=== PATIENT | male | born 1955 | race Caucasian/White ===

== ENCOUNTER → 2024-10-07 | Outpatient (CLI) | payer OTHER ==
[2024-10-07 12:45] LABS: CREATININE 0.8 mg/dL (0.5-1.3); POTASSIUM 4.5 mmol/L (3.5-5.1)
== END | disposition home or self-care (01) ==
LOC: LAB 08:41
PROVIDERS: ATTEND Internal Medicine
DX: I25.10 Atherosclerotic heart disease of native coronary artery without angina pectoris (principal)
CPT/HCPCS: 36415; 80048

== ENCOUNTER → 2024-10-10 | Outpatient (CLI) | payer MEDICARE, OTHER ==
[~2024-10-10] MED LIST: IOHEXOL 350 MG/ML 100ML INFUS..BTL IV ONE; IOHEXOL-350 50ML VIAL IV ONE; metoPROLOL tartRATE 1 MG/ML 5ML VIAL IV ONE
--- NOTE | 2024-10-10 10:11 | HMCIMG ---
CT OF THE CHEST WITH CONTRAST- CT Cardiac Angio co-interpretation This is done as part of the CT cardiac angiogram study. The interpretation of the coronary arteries will be done by dtp operator in a separate report. History: over-read Comparison: none CT Dose Index (CTDI): 77.90 mGy Dose Length Product (DLP): 493.40 total mGy PROTOCOL: Examination is done at 2.5 millimeter volumetric acquisition after contrast administration with Isovue 370, 100 cc IV, without complications. Photography is done at 5 millimeter thick intervals for the thorax. The examination begins above the heart and therefore the lung apices are incompletely included. The rest of the left lung is included but the right lung is only included up to its middle third. The periphery of the right lung is not included in the study. FINDINGS: The visualized part of the airway is preserved. The bony and soft tissue structures of the chest wall are unremarkable. The aorta is unremarkable. No mediastinal lymphadenopathy is seen. The lung windows demonstrate no worrisome pulmonary nodules, masses or infiltrates. There is no evidence of pulmonary embolism in the visualized lung segments. The upper abdominal views are unremarkable. Impression: No significant abnormalities identified.
--- NOTE | 2024-10-16 14:28 | CARDIOLOGY ---
RAD REPORT: CORNARY CT ANGIO RADIOLOGY REPORT: CORONARY CT ANGIOGRAPHY DATE: Oct 16, 2024 QUALITY: Excellent CLINICAL HISTORY AND INDICATION: [CAD ] TECHNIQUE: After obtaining a preliminary stocking inspector image, contrast imaging performed on an Aquillon [id number] scanner. A dedicated, limited window, coronary imaging protocol was used, with single breath-hold, retrospective ECG gating, and automated arrhythmia rejection. 100 cc of low osmolar contrast agent: Omnipaque 350 was delivered via a 18-gauge IV catheter in the right antecubital fossa, using a power injector and followed by 60 cc of normal saline bolus as a chaser. Collimated images were reformatted at 0.5 mm intervals, and sent to an offline independent workstation for interpretation, using 3D anatomic reconstructions: Curved multiplanar reconstructions, maximum intensity projections, and multiplanar imaging. 5 mg IV metoprolol was administered prior to scanning. 0.8 mg SL nitroglycerin was given. CORONARY ARTERY DESCRIPTIONS: The coronary arteries arise in normal position. Left main coronary artery: Normal caliber vessel that bifurcates into the LAD and LCx. No stenosis. Left anterior descending coronary artery: Normal caliber vessel and gives rise to diagonal and septal branches. There is mixed calcified and noncalcified plaque in the proximal LAD with 70% stenosis. Left circumflex coronary artery: Normal caliber, nondominant and gives rise to a large OM branch. There is mixed calcified and noncalcified plaque in the proximal OM1 with 20-30% stenosis. Right coronary artery: Large, dominant vessel giving rise to the PL and PDA branches. There is a drug eluting stent in the proximal to mid RCA. CAD-RADs: 4A severe stenosis. Thoracic Aorta: Normal diameter. Vani Snyder MD Cardiovascular Disease [facility] VANI SNYDER MD Oct 16, 2024 14:28
== END | disposition home or self-care (01) ==
LOC: RAH 08:18
PROVIDERS: ATTEND Internal Medicine
DX: I25.10 Atherosclerotic heart disease of native coronary artery without angina pectoris (principal)
CPT/HCPCS: 75574; J3490; Q9967 ×2

== ENCOUNTER 2024-11-11 05:46 | Inpatient (IN) | payer OTHER ==
--- NOTE | 2024-11-07 09:58 | EKG ---
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
[2024-11-07 10:00] VITALS: BP 133/68; PULSE 64; RESP 14; TEMP 97.1
[2024-11-07 10:18] LABS: BASOPHILS # (AUTO) 0.04 K/uL (0.00-0.20); BASOPHILS % (AUTO) 0.5 % (0.0-5.0); EOSINOPHILS # (AUTO) 0.23 K/uL (0.00-0.70); EOSINOPHILS % (AUTO) 2.9 % (0.0-8.0); HEMATOCRIT 31.6 % (42-54); IMMATURE GRANULOCYTE ABSOLUTE 0.03 K/uL (0-1); MEAN CORPUSCULAR HGB CONC 29.1 g/dL (32.0-36.0); MEAN CORPUSCULAR VOLUME 82.5 fL (79-99); MONOCYTES # (AUTO) 0.7 K/uL (0.1-1.0); MONOCYTES % (AUTO) 8.7 % (3.0-13.0); NEUTROPHILS % (AUTO) 62.5 % (40.0-77.0); PLATELET COUNT (AUTO) 336 K/uL (130-400); RED BLOOD CELL COUNT(AUTO) 3.83 MIL/uL (4.50-6.20); RED CELL DISTRIBUTION WIDTH 15.3 % (11.0-15.5)
[2024-11-07 10:28] LABS: INR 1.11 (0.85-1.15); PROTHROMBIN TIME 12.3 SEC (9.6-11.6)
[2024-11-07 10:30] LABS: CREATININE 0.7 mg/dL (0.5-1.3); PARTIAL THROMBOPLASTIN TIME 21.6 SEC (26.3-35.5); POTASSIUM 4.4 mmol/L (3.5-5.1)
[2024-11-07 10:46] LABS: B-TYPE NATRIURETIC PEPTIDE 51 pg/mL (0-100)
--- NOTE | 2024-11-07 11:42 | HMCIMG ---
CHEST 1VW HISTORY: Preop COMPARISON: None FINDINGS: A frontal projection of the chest was obtained. No acute pulmonary infiltrates is seen. The heart is borderline enlarged. Prominent interstitial markings are seen. No evidence of aortic calcification is seen. IMPRESSION: 1. No acute pulmonary infiltrate is seen.
--- NOTE | 2024-11-08 12:47 | NUR ---
RE: LABS REPORTED HGB 9.2/HCT 31.[address] VANG, NO NEW ORDERS RECEIVED.
[2024-11-11] VITALS (21 sets, daily range): BP systolic 105–151; BP diastolic 55–76; PULSE 66–87; RESP 13–18; TEMP 97.6–98.6; O2SAT 92
[~2024-11-11] VITALS: Ht 170.2 cm; Wt 92.1 kg
[~2024-11-11 05:46] MED LIST changes: +ASPI-1443 PO; +ATOR-2 PO; +BISO5TAB19 PO; -IOHEXOL 350 MG/ML 100ML INFUS..BTL IV ONE; -IOHEXOL-350 50ML VIAL IV ONE; +PRAS10TA9 PO; +RAMI2.5C57 PO; -metoPROLOL tartRATE 1 MG/ML 5ML VIAL IV ONE
[2024-11-11] MEDS: 0.9%NACL 1000ML 1,000 ML IV SCH ×2 (06:33→10:00)
[2024-11-11] MEDS ORDERED: IOHEXOL 350 MG/ML 100ML INFUS..BTL IV ONE ×6 (07:18→12:38)
[2024-11-11] MEDS ORDERED: HEParin-NS 1,000 UNIT/500 ML 1,000 ML IV ONE ×2 (07:18→10:20)
[2024-11-11] MEDS ORDERED: LIDOCAINE HCL 400MG/20ML VIAL ONE ×2 (07:18→10:20)
[2024-11-11] MEDS ORDERED: HEParin 10,000 UNIT/10ML (1,000 UNIT/ML) VIAL ONE ×2 (07:18→10:26)
[2024-11-11] MEDS ORDERED: NITROGLYCERIN 50MG VIAL ONE ×2 (07:19→10:21)
[2024-11-11] MEDS ORDERED: FENTanyl CITRate PF 50 MCG/1 ML 2ML VIAL ONE ×4 (07:34→11:45)
[2024-11-11] MEDS ORDERED: MIDAZOLAM HCL 1 MG/ML 2ML VIAL ONE ×4 (07:34→11:45)
[2024-11-11] MEDS ORDERED: niCARDIpine 25MG INJ IV ONE (07:36)
[2024-11-11] MEDS ORDERED: VERAPAMIL HCL 2.5 MG/ML VIAL ONE (07:42)
[2024-11-11] MEDS ORDERED: IOHEXOL-350 50ML VIAL IV ONE (09:31)
[2024-11-11] MEDS ORDERED: hydrALAZine 20MG/ML VIAL ONE (09:40)
--- NOTE | 2024-11-11 10:10 | PRN ---
Cath Procedure Report CATH PROCEDURE REPORT CARDIAC CATHETERIZATION REPORT Date of Service: Nov 11, 2024 PROCEDURE: Left heart catheterization with selective right and left coronary angiography Intravascular ultrasound of the left anterior descending artery and left main Shockwave lithotripsy to the ostial to proximal left anterior descending arteries PTCA with placement of drug-eluting stent to the mid left anterior descending with a 3.0 x 15 mm tri [place] drug-eluting stent PTCA with placement of drug-eluting stent to the ostial to proximal left anterior descending with a 3.0 x 18 mm tri [place] drug-eluting stent in overlapping fashion Conscious sedation ORDER ENTRY SPECIALIST: Dannielle Miller DO INDICATION: Typical angina, known stenosis of left anterior descending artery, abnormal CCTA DESCRIPTION OF PROCEDURE: After informed consent was obtained, patient brought back to the foundry laborer coreroom suite in fasting state. Lidocaine was used at the subcutaneous tissues of the right wrist. The right radial artery was accessed on 1st attempt placement of six Bulgarian short sheath followed by vasodilator cocktail of 2.5 mg of verapamil and 200 mcg of nitroglycerin. Over an 035 J-wire, a five Bulgarian JR4 catheter was advanced into the ascending aorta however we could not selectively engage the right coronary artery therefore it was exchanged for an AR1 catheter which was also unsuccessful. As we confirmed patency via nonselective imaging, we then proceeded with imaging of the left coronary system. Over an six Bulgarian XB three five catheter, the left coronary artery was selectively engaged. Run-through wire was advanced down to the distal LAD. Predilatation was performed at the ostial to proximal LAD with a 3.0 x 12 mm balloon, however unable to advanced in the mid LAD stenosis. Therefore, we performed shockwave lithotripsy with a 3.0 mm balloon to the ostial to proximal LAD, followed by balloon angioplasty to the mid LAD with a 2.0 x 12 mm Euphora balloon, followed by a fresh 3.0 x 12 mm Euphora balloon. Following this, we were able to advanced the 3.0 x 15 mm tri [place] drug-eluting stent to the mid left anterior descending stenosis, followed by placement of an tri [place] 3.0 x 18 mm drug-eluting stent to the ostial to proximal left anterior descending artery in overlapping fashion with the prior placed stent. Post deployment revealed patency, adequate coverage of lesion, no dissections or residual stenosis. At this point, we exchanged over the 035 wire for the five Bulgarian JR4 catheter and performed a nonselective imaging of the right coronary artery. All catheters and wires were then removed and hemostasis achieved at the right greater arteries the vasband. FINDINGS: Left main: Short left main, bifurcating into left anterior descending left circumflex Left anterior descending: Ostial to proximal 70% eccentric calcified stenosis measuring 2.4 mm by IVUS pre stenting. In the mid LAD at the takeoff of the septal mobile development manager and large diagonal there was a 70% calcified eccentric stenosis as well. The distal LAD is diffusely disease, tortuous of 20-30% stenosis followed by an apical 70% stenosis. The 1st diagonal is a large caliber with mid 40-50% stenosis. Left circumflex: Proximal 10-20% stenosis. Large caliber OM1, OM2 branch. OM1 with ostial 30% stenosis. It bifurcates distally into a very small superior branch which displaced 70% stenosis. The OM2 also bifurcates distally with a very small inferior branch with 70% stenosis. Right coronary artery: Right dominant coronary system. The RCA is non selectively injected. The prior placed stent in the proximal to mid RCA with 50% ISR in the midportion, focal. The RPDA displaced luminal irregularities. Contrast: 300 mL Opening aortic pressure 1844/94 with a mean of 131 mm Hg Left ventricular pressure 175 mm Hg LVEDP 34 mm Hg. SUMMARY: Ostial to proximal followed by mid LAD stenosis of 70%, eccentric, calcified status post intravascular ultrasound-guided PTCA using shockwave lithotripsy and drug-eluting stent placement. DANNIELLE MILLER DO Nov 11, 2024 10:10
[2024-11-11] MEDS ORDERED: NITROGLYCERIN 0.4 MG SL TAB SL ONE (10:12)
[2024-11-11] MEDS ORDERED: NITROGLYCERIN 4.9GM SPRAY 60 SPRAY/BOT SPRY TL ONE (10:14)
[2024-11-11] MEDS ORDERED: NITROGLYCERIN 50MG/D5W 250ML 1 BOT ONE (10:14)
[2024-11-11] MEDS ORDERED: EPTIFIBATIDE 2 MG/ML 10 ML VIAL IVP ONE (10:55)
[2024-11-11] MEDS ORDERED: EPTIFIBATIDE 75MG/100ML BOTTLE 100 ML IV ONE (11:05)
--- NOTE | 2024-11-11 11:06 | EKG ---
[facility] Test Date: 2024-11-11 Test Time: 10:14:46 Pat Name: KELSIE HOUSTON Department: [facility] Room: 226 Gender: M Gta: maurice Lindo RN : 1955 Requested By: DANNIELLE VANG Order Number: [id number] Reading MD: Deny Tidwell Measurements Intervals [place] Rate: 75 P: 29 NE: 134 QRS: 75 QRSD: 106 T: 77 QT: 409 QTc: 457 Interpretive Statements Sinus rhythm Inferior infarct, acute (RCA) ST elevation, consider anterolateral injury Compared to ECG 11/07/2024 10:48:57 Myocardial infarct finding now present ST (T wave) deviation now present Electronically Signed On 11-13-2024 19:58:09 CURTAIN HEMMER AUTOMATIC by Deny Tidwell Please click the below link to view image of tracing.
[2024-11-11] MEDS ORDERED: HEParin-NS 1,000 UNIT/500 ML 500 ML IV ONE (11:20)
[2024-11-11] MEDS ORDERED: HEParin 25,000 UNITS/250ML D5W 250 ML IV ONE (12:22)
[2024-11-11] MEDS ORDERED: ondanSETRON 4MG INJ ONE (12:54)
--- NOTE | 2024-11-11 12:56 | PRN ---
Cath Procedure Report CATH PROCEDURE REPORT CARDIAC CATHETERIZATION REPORT Date of Service: Nov 11, 2024 PROCEDURES PERFORMED: LEFT HEART CATHETERIZATION WITH SELECTIVE RIGHT AND LEFT CORONARY ANGIOGRAPHY PTCA WITH BALLOON ANGIOPLASTY TO THE DISTAL TO APICAL LEFT ANTERIOR DESCENDING ARTERY USING A SPRINTER 2.5 X 12 MM COMPLIANT BALLOON DIRECT CURRENT CARDIOVERSION FROM VENTRICULAR FIBRILLATION WITH 360 JOULES TO SINUS RHYTHM. CAT RX ASPIRATION THROMBECTOMY OF DISTAL TO APICAL LEFT ANTERIOR DESCENDING THROMBOTIC OCCLUSION INTRACORONARY TPA INFUSION CONSCIOUS SEDATION ULTRASOUND GUIDED RIGHT COMMON FEMORAL ARTERY ACCESS INDICATION: Inferior ST elevation PA MIXING TANK OPERATOR: Dannielle Miller DESCRIPTION OF PROCEDURE: Post ostial to proximal and mid left anterior descending PCI, patient began experiencing chest pain with radiation to left arm. EKG performed showing inferior ST elevations. Patient prepped for emergent repeat left heart catheterization and coronary angiography. Using ultrasound guidance, the right common femoral artery was accessed on 1st attempt with the use of micropuncture and upsized to a six Kosovan short sheath. Over an 035 J-wire, a JL four guide catheter was advanced and used to selectively engage the right coronary artery multiple angiographic views were taken. This revealed patency. Then, we proceeded with placement of six Kosovan JL 4.0 guide catheter which was used to selectively engage the left coronary artery. This revealed patency of the proximal vessels and patency of the prior placed stent in the LAD, however the apical LAD with 100% thrombotic occlusion. We advanced an 014 x 300 run-through wire distally and performed dilation of this lesion with a 2.5 x 12 mm sprinter compliant balloon which result in immediately and ventricular fibrillation with patient cardioverted with 360 joules. Integrilin double bolus and drip was initiated. Due to poor guide support, we utilized a six Kosovan GuideLiner, however had difficulty in advancing a Pronto aspiration catheter through the guide liner. Nicardipine infusion was given intracoronary. We do not have adequate guide support to advance the Pronto aspiration catheter without the guide liner, however. We then exchanged the run-through wire using a microcatheter for in 014 300 cm wiggle wire, and attempted to perform aspiration thrombectomy with a cataract system. We were unable to advance this through the six Kosovan guide liner, and unable to advance it distally without the six Kosovan guide liner. Intracoronary tPA was administered which did not resolve the thrombus. At this point, the decision was made to upsized the system to a seven Kosovan system. The sheath was exchanged for a short seven Kosovan sheath, upsized to a seven Kosovan XB 4.0 guide catheter, and the run-through wire was advanced distally. The seven Kosovan GuideLiner was advanced to the proximal left anterior descending artery. We then exchanged the wire for the wiggle wire using the microcatheter. We performed aspiration thrombectomy using the Cat Rx system which resulted in extirpated clot. Multiple attempts were made at advancing a stent to the distal left anterior descending artery due to residual thrombosis, however unsuccessful. At this point, due to duration of the p rocedure, amount of contrast used, radiation exposure, decision was made to continue medical therapy for the patient's distal left anterior descending artery residual thrombosis. FINDINGS: Please see prior angiogram report for full diagnostic details. On this angiography, we were able to selectively engage the right coronary artery which revealed 40-50% mid ISR of the prior placed stents and a mildly diffuse RPDA The distal to apical LAD and 100% thrombotic occlusion, in the region of the 50% known stenosis. Fluroscopy time (total): 67.8 minutes Contrast delivered to patient (total): 490 ml mGy (total) 6135 SUMMARY: Distal to duplicate left anterior descending 100% thrombotic occlusion status post balloon angioplasty, intracoronary nicardipine, intracoronary tPA, and CAT RX thrombectomy. There was residual 70% stenosis with thrombosis, however unable to pass the stent therefore patient will be treated medically using heparin infusion, Integrilin infusion, nitroglycerin drip. DANNIELLE MILLER DO Nov 11, 2024 12:56
[2024-11-11] MEDS ORDERED: DEXTROSE 50%-WATER 50 ML DISP.SYRIN IV PRN (13:00)
[2024-11-11] MEDS ORDERED: GLUCAGON 1MG KIT 1 MG ML IM PRN (13:00)
[2024-11-11] MEDS ORDERED: NITROGLYCERIN 50MG/D5W 250ML 250 BOT IV SCH (13:00)
[2024-11-11] MEDS ORDERED: hydrALAZine 20MG/ML VIAL IV PRN (13:00)
[2024-11-11] MEDS: HEParin 25,000 UNITS/250ML D5W 250 ML IV SCH (13:30)
[2024-11-11 14:24] LABS: BASOPHILS # (AUTO) 0.03 K/uL (0.00-0.20); BASOPHILS % (AUTO) 0.2 % (0.0-5.0); EOSINOPHILS # (AUTO) 0.02 K/uL (0.00-0.70); EOSINOPHILS % (AUTO) 0.2 % (0.0-8.0); HEMATOCRIT 25.7 % (42-54); IMMATURE GRANULOCYTE ABSOLUTE 0.08 K/uL (0-1); LYMPHOCYTES # (AUTO) 1.1 K/uL (1.0-4.8); LYMPHOCYTES % (AUTO) 8.6 % (21.0-51.0); MEAN CORPUSCULAR HEMOGLOBIN 24.3 pg (27.0-33.0); MEAN CORPUSCULAR VOLUME 81.1 fL (79-99); MONOCYTES # (AUTO) 0.8 K/uL (0.1-1.0); MONOCYTES % (AUTO) 6.1 % (3.0-13.0); NEUTROPHILS # (AUTO) 10.7 K/uL (1.8-7.7); NEUTROPHILS % (AUTO) 84.3 % (40.0-77.0); PLATELET COUNT (AUTO) 291 K/uL (130-400); RED BLOOD CELL COUNT(AUTO) 3.17 MIL/uL (4.50-6.20); RED CELL DISTRIBUTION WIDTH 15.9 % (11.0-15.5); WHITE BLOOD COUNT (AUTO) 12.7 K/uL (4.8-10.8)
--- NOTE | 2024-11-11 15:37 | HP ---
HISTORY AND PHYSICAL NOTE DATE OF CONSULTATION: 11/11/24 HISTORY OF PRESENT ILLNESS: Patient is a pleasant 69-year-old male with past medical history of coronary artery disease, history of ventricular fibrillation cardiac arrest secondary to 100% thrombotic occlusion of the right coronary artery, status post emergent left heart catheterization with mid RCA drug-eluting stent placement in July of 2024 while he was vacationing in [place]. He also has a history of hypertension. Patient was noted to have residual disease of the left anterior descending artery and diffuse apical LAD stenosis with moderate OM1 disease. Transthoracic echocardiogram at that time showed a normal left ventricular ejection fraction of 60-65% and mild hypokinesis of the basal inferior region. Was discharged on dual antiplatelet therapy with aspirin prasugrel of which he has been strictly compliant. Patient underwent coronary CT angiography to further evaluate his mid LAD stenosis this was suggestive of 70% stenosis of the proximal LAD with overall CAD rads of for a period he denied chest pain, however with exertional intolerance and episodes of lightheadedness. Patient presented on one 02/09/2025 for left heart catheterization, coronary angiography with possible percutaneous intervention of the left anterior descending. Patient underwent stenting of the ostial to proximal LAD in overlapping fashion with a 2nd stent in the mid LAD using intravascular ultrasound guidance and shockwave lithotripsy. Postprocedure, he developed acute onset of chest pain with radiation to the left upper extremity with EKG showing inferior ST elevations. Patient was immediately brought back to the concrete mixing plant laborer for repeat coronary angiography which revealed apical left anterior descending artery 100% thrombosis, now status post balloon angioplasty and aspiration thrombectomy, and single cardioversion from ventricular fibrillation with 360 joules to sinus rhythm. Patient admitted to the ICU overnight on heparin, Integrilin, and nitroglycerin infusions. ALLERGIES: Coded Allergies: No Known Drug Allergies (Unverified Allergy, Unknown, 05/18/15) SOCIAL HISTORY: , independent with ADLs, nonsmoker FAMILY HISTORY Denies family history of coronary artery disease. HOME MEDS: Reported Medications Prasugrel HCl (Prasugrel HCl) 10 Mg Tablet, 10 MG PO DAILY, TAB 11/07/24 Bisoprolol Fumarate (Bisoprolol Fumarate) 5 Mg Tablet, 5 MG PO BID, TAB 11/07/24 Ramipril (Ramipril) 2.5 Mg Capsule, 2.5 MG PO BID, CAP 11/07/24 Atorvastatin Calcium (Atorvastatin Calcium) 80 Mg Tablet, 80 MG PO DAILY, TAB 11/07/24 Aspirin (Aspirin EC) 81 Mg Tablet.dr, 81 MG PO DAILY, TAB 11/07/24 INPATIENT MEDS: Current Medications Medications Dose Ordered Sig/Tessy Start Time Stop Time Status Last Admin Sodium Chloride 1,000 ml @ 0 mls/hr Q0M 11/11/24 06:30 12/11/24 06:29 11/11/24 06:33 Acetaminophen/ Codeine Phosphate 1 tab Q4H PRN 11/11/24 13:00 12/11/24 12:59 Prasugrel 10 mg DAILY 11/12/24 09:00 12/12/24 08:59 Dextrose 50 ml AD PRN 11/11/24 13:00 12/11/24 12:59 Glucagon 1 mg AD PRN 11/11/24 13:00 12/11/24 12:59 Aspirin 81 mg DAILY 11/12/24 09:00 12/12/24 08:59 Atorvastatin Calcium 40 mg HS 11/11/24 21:00 12/11/24 20:59 Eptifibatide 100 ml @ 0 mls/hr PROTOCOL 11/11/24 13:00 12/11/24 12:59 Heparin Sodium/ Dextrose 250 ml @ 0 mls/hr Q6H 11/11/24 13:30 12/11/24 13:29 Nitroglycerin/ Dextrose 250 ml @ 0 mls/hr PROTOCOL 11/11/24 13:00 12/11/24 12:59 Hydralazine HCl 10 mg Q4H PRN 11/11/24 13:00 12/11/24 12:59 Lidocaine 1 each DAILY 11/11/24 15:30 12/11/24 15:29 Fentanyl Citrate 50 mcg Q1HR PRN 11/11/24 15:30 11/12/24 15:29 VITAL SIGNS Vital Signs Date Time Temp Pulse Resp B/P (MAP) Pulse Ox O2 Delivery O2 Flow Rate FiO2 11/11/24 06:00 98.1 66 18 134/76 97 Room Air REVIEW OF SYSTEMS Patient examined postprocedure. The denies chest pain. His only complaint is of upper back pain. There was one episode of nausea with emesis treated with Zofran 4 mg x 1. PHYSICAL EXAM General: Alert and oriented x4 despite immediately postprocedure having received conscious sedation with Versed and fentanyl Cor: Regular rate and rhythm Respirations: Nonlabored, no crackles or wheeze, on O2 via nasal cannula Abdomen: Soft Extremities: No edema of the extremities x4. Vascular: Right radial artery vascular band in place postprocedure. Right common femoral artery sheath left in place. Normal capillary refill of the distal extremities. Neuro: A&O x4, nonfocal. LABORATORY RESULTS Laboratory Tests 11/11/24 14:10: White Blood Count 12.7, Red Blood Count 3.17, Hemoglobin 7.7, Hematocrit 25.7, Mean Corpuscular Volume 81.1, Mean Corpuscular Hemoglobin 24.3, Mean Corpuscular Hemoglobin Concent 30.0, Red Cell Distribution Width 15.9, Platelet Count 291, Mean Platelet Volume 10.3, Immature Granulocyte % (Auto) 0.6, Neutrophils (%) (Auto) 84.3, Lymphocytes (%) (Auto) 8.6, Monocytes (%) (Auto) 6.1, Eosinophils (%) (Auto) 0.2, Basophils (%) (Auto) 0.2, Neutrophils # (Auto) 10.7, Lymphocytes # (Auto) 1.1, Monocytes # (Auto) 0.8, Eosinophils # (Auto) 0.02, Basophils # (Auto) 0.03, Absolute Immature Granulocyte (auto 0.08, Nucleated Red Blood Cells 0.0, Activated Partial Thromboplast Time 92.5 PROBLEM LIST Coronary artery disease Ventricular fibrillation cardiac arrest secondary to 100% thrombotic occlusion to the apical LAD status post cardioversion with 360 joules to sinus rhythm Inferior ST-elevation VT secondary to apical LAD thrombosis status post balloon angioplasty and aspiration thrombectomy History of ventricular fibrillation cardiac arrest secondary to 100% thrombotic occlusion of the right coronary artery status post stenting to the mid RCA July 2024 Hypertension PLAN We will admit the patient to the ICU. I have spoken with the ICU lightning protection installer and appreciate their help in managing this patient We will keep the patient on heparin infusion and Integrilin infusion. The right common femoral artery sheath will be left in place Nitroglycerin drip will be continued, titrate to chest pain AP and EKG for any repeat chest pain Patient be continued on the dual antiplatelet therapy with aspirin and prasugrel for minimum 12 months. Transthoracic echocardiogram has been ordered We will need to monitor the patient's renal function closely given the contrast load of the proximally 500 cc Due to high cumulative radiation exposure from both procedures (6 Gy), patient will need to be monitored over the next few weeks for skin reaction. This was discussed with the patient and his spouse. DANNIELLE VANG DO Nov 11, 2024 15:37
[2024-11-11] MEDS: LIDOCAINE 4% ADH..PATCH TP SCH (15:47)
[2024-11-11] MEDS: FENTanyl CITRate PF 50 MCG/1 ML 2ML VIAL IVP PRN ×2 (16:57→20:07)
[2024-11-11] MEDS: EPTIFIBATIDE 75MG/100ML BOTTLE 100 ML IV SCH (18:05)
[2024-11-11] MEDS: atorVAStatin 40 MG TABLET PO SCH (20:06)
--- NOTE | 2024-11-11 20:29 | CONS ---
[facility] CONSULTATION NOTE Date Patient Seen: Nov 11, 2024 Time of Visit: 20:28 Supervising Physician: Dr. Mckinney Reason for Consultation: ICU/ Post cath Primary Care Physician: Outpatient Specialists: Inpatient Consults: BIS Critical Care team PROBLEM LIST: Coronary artery disease Ventricular fibrillation cardiac arrest secondary to 100% thrombotic occlusion to the apical LAD status post cardioversion with 360 joules to sinus rhythm Inferior ST-elevation [place] secondary to apical LAD thrombosis status post balloon angioplasty and aspiration thrombectomy History of ventricular fibrillation cardiac arrest secondary to 100% thrombotic occlusion of the right coronary artery status post stenting to the mid RCA July 2024 Hypertension HPI: Mr. Garvey is a 69-year-old male with history of HTN, coronary artery disease, history of ventricular fibrillation cardiac arrest secondary to 100% thrombotic occlusion of the right coronary artery, status post emergent left heart catheterization with mid RCA drug-eluting stent placement in July of 2024 while he was vacationing in [place]. Per chart review, "the patient was noted to have residual disease of the left anterior descending artery and diffuse apical LAD stenosis with moderate OM1 disease. Transthoracic echocardiogram at that time showed a normal left ventricular ejection fraction of 60-65% and mild hypokinesis of the basal inferior region. Was discharged on dual antiplatelet therapy with aspirin prasugrel of which he has been strictly compliant. Patient underwent coronary CT angiography to further evaluate his mid LAD stenosis this was suggestive of 70% stenosis of the proximal LAD with overall CAD rads of for a period he denied chest pain, however with exertional intolerance and episodes of lightheadedness. Patient presented on one 02/09/2025 for left heart catheterization, coronary angiography with possible percutaneous intervention of the left anterior descending. Patient underwent stenting of the ostial to proximal LAD in overlapping fashion with a 2nd stent in the mid LAD using intravascular ultrasound guidance and shockwave lithotripsy. Postprocedure, he developed acute onset of chest pain with radiation to the left upper extremity with EKG showing inferior ST elevations. Patient was immediately brought back to the [facility] for repeat coronary angiography which revealed apical left anterior descending artery 100% thrombosis, now status post balloon angioplasty and aspiration thrombectomy, and single cardioversion from ventricular fibrillation with 360 joules to sinus rhythm. Patient admitted to the ICU overnight on heparin, Integrilin, and nitroglycerin infusions." BIS team was consulted for critical care management. I went to assess the patient at bedside in CV 211. The patient appeared comfortable, in no distress. Patient denied chest pain and shortness of breath. The patient reports back pain from lying supine 4 hours. Vital signs within normal limits. BI team we will continue monitoring patient closely. Plan and assessment are listed below. PAST MEDICAL HX: see above PAST SURGICAL HX: As mentioned above SOCIAL HISTORY: No tobacco, ETOH, or illicit drug use Coded Allergies: No Known Drug Allergies (Unverified Allergy, Unknown, 05/18/15) REVIEW OF SYSTEMS: 12 point ROS reviewed with patient. Pertinent positives mentioned above. Otherwise negative. PHYSICAL EXAM: GENERAL: alert, awake oriented x 3 HEENT: EOMI, Sclera non icteric, moist mucosa NECK: Supple, no JVD, trachea midline LUNGS: Clear breath sounds bilaterally. No wheezes HEART: Regular rate and rhythm. Normal S1 and S2, without murmurs ABD: Abdomen soft, nontender. Bowel sounds present EXT: No clubbing cyanosis or edema. Capillary and peripheral vascular WNL. NEURO: Alert and oriented to person, follows commands Vital Signs (last 8hr) Date Time Temp Pulse Resp B/P (MAP) Pulse Ox O2 Delivery O2 Flow Rate FiO2 11/11/24 20:00 92 Nasal Cannula* 4 36 11/11/24 18:00 76 18 129/67 95 Nasal Cannula 2.0 11/11/24 17:15 73 16 110/55 97 Nasal Cannula 2.0 11/11/24 17:00 75 15 110/57 95 Nasal Cannula 2.0 11/11/24 16:45 76 16 122/66 94 Nasal Cannula 2.0 11/11/24 16:30 82 16 125/76 92 Nasal Cannula 2.0 11/11/24 16:15 76 18 117/72 91 Nasal Cannula 2.0 11/11/24 16:00 97.9 77 15 113/69 92 Nasal Cannula 2.0 11/11/24 15:59 Room Air* 0 21 11/11/24 15:45 71 18 124/68 94 Nasal Cannula 2.0 11/11/24 15:30 67 16 109/65 97 Nasal Cannula 2.0 11/11/24 15:15 68 18 115/68 97 Nasal Cannula 2.0 11/11/24 15:00 74 18 116/61 94 Nasal Cannula 2.0 11/11/24 14:45 73 16 110/74 97 Nasal Cannula 2.0 11/11/24 14:30 71 18 105/67 95 Nasal Cannula 2.0 11/11/24 14:15 97.5 73 15 116/63 95 Nasal Cannula 2.0 LABS: Hematology Labs: Test 11/11/24 14:10 Range/Units White Blood Count 12.7 H 4.8-10.8 K/uL Red Blood Count 3.17 L 4.50-6.20 MIL/uL Hemoglobin 7.7 L 14.0-18.0 g/dL Hematocrit 25.7 L 42-54 % Mean Corpuscular Volume 81.1 79-99 fL Mean Corpuscular Hemoglobin 24.3 L 27.0-33.0 pg Mean Corpuscular Hemoglobin Concent 30.0 L 32.0-36.0 g/dL Red Cell Distribution Width 15.9 H 11.0-15.5 % Platelet Count 291 130-400 K/uL Mean Platelet Volume 10.3 7.5-10.5 fL Immature Granulocyte % (Auto) 0.6 0-1 % Neutrophils (%) (Auto) 84.3 H 40.0-77.0 % Lymphocytes (%) (Auto) 8.6 L 21.0-51.0 % Monocytes (%) (Auto) 6.1 3.0-13.0 % Eosinophils (%) (Auto) 0.2 0.0-8.0 % Basophils (%) (Auto) 0.2 0.0-5.0 % Neutrophils # (Auto) 10.7 H 1.8-7.7 K/uL Lymphocytes # (Auto) 1.1 1.0-4.8 K/uL Monocytes # (Auto) 0.8 0.1-1.0 K/uL Eosinophils # (Auto) 0.02 0.00-0.70 K/uL Basophils # (Auto) 0.03 0.00-0.20 K/uL Absolute Immature Granulocyte (auto 0.08 0-1 K/uL Nucleated Red Blood Cells 0.0 0.0-0.19 % White Cell Morphology Comment See comments Coagulation Labs: Test 11/11/24 14:10 Range/Units Activated Partial Thromboplast Time 92.5 *H 26.3-35.5 SEC DIAGNOSTICS / RADIOLOGY RESULTS: [ ] PLAN Admit the patient to the ICU. Follow cardiology's recommendations: -Continue heparin infusion and Integrilin infusion. -Monitor the right common femoral artery sheath that was left in place. -Continue Nitroglycerin drip, titrate to chest pain -AP and EKG for any repeat chest pain -Continued on the dual antiplatelet therapy with aspirin and prasugrel for minimum 12 months. -Transthoracic echocardiogram has been ordered by Cardiology. -Monitor renal function closely given the contrast load of the proximally 500 cc -Due to high cumulative radiation exposure from both procedures (6 Gy), patient will need to be monitored over the next few weeks for skin reaction. Cardiology discussed this with the patient and his spouse. Other plan and assessment: NEURO: Minimize central acting medications as possible. Fall Precautions. Well lighted room through the day and minimize interruptions through the night to prevent acute delirium. PULMONARY: Supplemental 02 as needed Titrate Fio2 to keep Spo2 > or = 90% DuoNebs and CPT as needed IS hourly while awake for pulmonary hygiene Out of bed to chair as tolerated VAP Bundle CARDIOVASCULAR: Follow hemodynamics. Titrate vasopressor to keep MAP >65 or systolic blood pressure >95mmHg GI & NUTRITION: Continue nutritional support Aspirations precautions Prokinetic agents and laxatives as needed KIDNEYS & ELECTROLYTES: Strict monitoring of intake and output Daily weights Avoid nephrotoxic agents Monitor electrolytes and replace as needed Goal urine output of 30mL/hr or 0.5mL/kg/hr ENDOCRINE: Maintain blood glucose between 100-180 at all times. Insulin sliding scale for blood glucose management INFECTIOUS DISEASE: Trend temperature. Zamora-culture if febrile. HEMATOLOGY & COAGULATION: Monitor H&H. Keep Hgb > 7 Transfuse 1 unit of PRBC for Hgb < 7 Transfuse 1 pack of platelets of platelets < 20, 000 Watch for any signs and symptoms of bleeding SKIN: Pressure ulcer prevention per facility protocol Rehab: PT/OT Code Status: Full Resuscitation Disposition: [Admit to ICU ] Other: Total patient critical care time exceeds 40 minutes excluding all procedures. KATT SHARP Nov 11, 2024 20:28
--- NOTE | 2024-11-11 21:20 | HMCSR ---
APPROVED REPORT EXAM: Two-dimensional and M-mode echocardiogram with Doppler and color Doppler. INDICATION ICD: Inferior STEMI 2D Dimensions RVDd4.0 cmLVEF(%)61.3 (>50%)LVED Vol(simp.)144.0 mL IVSd1.0 (0.7-1.1cm)FS(%)33 %LVES Vol(simp.)65.8 mL LVDd5.7 (3.8-5.6cm)LA (2D)3.5 (1.6-4.0cm)LVEF(%, simp.)54 % PWd1.0 (0.7-1.1cm)Ao Root(2D)3.7 (2.0-3.7cm)LA ESV INDEX (4CH)25.20 mL/m2 IVSs1.1 cmLVOT diam2.4 (1.8-2.4cm)LA ESV INDEX (2CH)29.10 mL/m2 LVDs3.8 (2.5-4.0cm)LA ESV INDEX (BP)25.00 mL/m2 PWs1.4 cm Aortic Valve AoV VTI0.2 mAo Mean GR2.0 mmHgLVOT VTI0.18 m PABLO (VMAX)4.2 cm2AVA (VTI) 4.2 cm2 Mitral Valve MV E Vmax43.7 cm/sDECEL Irko503 ms MV A Vmax46.1 cm/sP 1/2 T62 ms E/A ratio0.9MVA (PHT)3.5 cm2 TDI E/E' Medial8.6E/E' Lateral6.6 Medial E' Peak V5.10 cm/sLateral E' Peak V6.60 cm/s Pulmonary Valve PV Vmax1.2 m/s PV Peak GR5.4 mmHg Tricuspid Valve RAP (EST) 8 mmHgRVSP8.0 mmHg Left Ventricle The left ventricle is normal size. There is normal left ventricular wall thickness. LVEF is 50-55%. N o left ventricle thrombus noted on this study. Indeterminate diastolic dysfunction. Right Ventricle The right ventricle is normal size. The right ventricular systolic function is normal. Atria The left atrium size is normal. The right atrium is borderiline dilated. Aortic Valve The aortic valve is normal in structure. Flakito of aortic regurgitation is present. There is no aortic valvular stenosis. Mitral Valve The mitral valve is normal in structure. There is no mitral valve regurgitation noted. There is no mi tral valve stenosis. Tricuspid Valve The tricuspid valve is normal in structure. There is no tricuspid valve regurgitation noted. Pulmonic Valve The pulmonary valve is normal in structure. There is no pulmonic valvular regurgitation. Great Vessels The aortic root is normal in size. IVC is not visualized. Pericardium There is no pericardial effusion. Other Information Quality : Fair, pt could not be placed onto left side. Conclusion The left ventricle is normal size. LVEF is 50-55%. The right ventricle is normal size. The right ventricular systolic function is normal. The left atrium size is normal. The right atrium is borderiline dilated. No valvular pathology. There is no pericardial effusion.
[2024-11-12] VITALS (14 sets, daily range): BP systolic 116–144; BP diastolic 63–86; PULSE 76–96; RESP 14–21; TEMP 98–98.7; O2SAT 94–96
[2024-11-12 04:31] LABS: BASOPHILS # (AUTO) 0.03 K/uL (0.00-0.20); BASOPHILS % (AUTO) 0.2 % (0.0-5.0); EOSINOPHILS # (AUTO) 0.02 K/uL (0.00-0.70); EOSINOPHILS % (AUTO) 0.1 % (0.0-8.0); HEMATOCRIT 27.3 % (42-54); IMMATURE GRANULOCYTE ABSOLUTE 0.13 K/uL (0-1); LYMPHOCYTES # (AUTO) 1.9 K/uL (1.0-4.8); LYMPHOCYTES % (AUTO) 12.8 % (21.0-51.0); MEAN CORPUSCULAR HEMOGLOBIN 24.4 pg (27.0-33.0); MEAN CORPUSCULAR HGB CONC 29.7 g/dL (32.0-36.0); MEAN CORPUSCULAR VOLUME 82.2 fL (79-99); MONOCYTES # (AUTO) 1.7 K/uL (0.1-1.0); MONOCYTES % (AUTO) 11.6 % (3.0-13.0); NEUTROPHILS # (AUTO) 11.1 K/uL (1.8-7.7); NEUTROPHILS % (AUTO) 74.4 % (40.0-77.0); PLATELET COUNT (AUTO) 296 K/uL (130-400); RED BLOOD CELL COUNT(AUTO) 3.32 MIL/uL (4.50-6.20); RED CELL DISTRIBUTION WIDTH 16.1 % (11.0-15.5)
[2024-11-12 04:44] LABS: CREATININE 0.6 mg/dL (0.5-1.3); POTASSIUM 3.8 mmol/L (3.5-5.1)
--- NOTE | 2024-11-12 07:18 | NUR ---
REPORT GIVEN TO YUDELKA HONEYCUTT
[2024-11-12] MEDS: PRASUGREL HCL 10 MG TABLET PO SCH (08:43)
[2024-11-12] MEDS: ASPIRIN 81 MG EC TAB PO SCH (08:43)
--- NOTE | 2024-11-12 09:49 | PN ---
[facility] CARDIOLOGY PROGRESS NOTE Date Patient Seen: Nov 12, 2024 Time of Visit: 09:34 Problem List: Coronary artery disease Ventricular fibrillation cardiac arrest secondary to 100% thrombotic occlusion to the apical LAD status post cardioversion with 360 joules to sinus rhythm Inferior ST-elevation [place] secondary to apical LAD thrombosis status post balloon angioplasty and aspiration thrombectomy History of ventricular fibrillation cardiac arrest secondary to 100% thrombotic occlusion of the right coronary artery status post stenting to the mid RCA July 2024 Hypertension Interval History: [Acute events overnight. The patient currently denies any chest pain, palpitations, dyspnea or any other anginal equivalents. He is endorsing mild to moderate low back pain. Blood pressure is 130/61mmhg with a heart rate of 89 beats per minute. 2D echocardiogram showed EF 50-55% no wall motion or valvular abnormalities.] Physical Examination: GENERAL: [No acute distress.] HEAD: [Normal with no signs of head trauma.] EYES: [PERRLA, EOMI, conjunctiva and sclera normal.] ENT: [Hearing grossly intact, normal oropharynx.] NECK: [Supple without JVD. There is no tenderness, lymphadenopathy, or masses. No thyromegaly. Normal carotid upstrokes without bruits.] LUNGS: [Clear breath sounds bilaterally. There are right basilar rales one third of the way up the chest. No wheezes, or rhonchi.] HEART: [Normal rate and rhythm. Normal S1 and S2 without mumurs, gallop or rub.] VASC: [Peripheral pulses +2 bilaterally.] ABD: [Bowel sounds normal, soft, nontender, no masses, no organomegaly. No audible bruits.] : [Not examined] LYMPH: [No lymphadenopathy noted.] EXT: [No clubbing, cyanosis or edema.] SKIN: [No rashes or lesions noted.] NEURO: [Awake, alert, and oriented x3. No focal sensory or strength deficits noted.] Laboratory: [ ] Hematology Labs: Test 11/12/24 04:06 11/11/24 14:10 Range/Units White Blood Count 15.0 H 4.8-10.8 K/uL Red Blood Count 3.32 L 4.50-6.20 MIL/uL Hemoglobin 8.1 L 14.0-18.0 g/dL Hematocrit 27.3 L 42-54 % Mean Corpuscular Volume 82.2 79-99 fL Mean Corpuscular Hemoglobin 24.4 L 27.0-33.0 pg Mean Corpuscular Hemoglobin Concent 29.7 L 32.0-36.0 g/dL Red Cell Distribution Width 16.1 H 11.0-15.5 % Platelet Count 296 130-400 K/uL Mean Platelet Volume 10.6 H 7.5-10.5 fL Immature Granulocyte % (Auto) 0.9 0-1 % Neutrophils (%) (Auto) 74.4 40.0-77.0 % Lymphocytes (%) (Auto) 12.8 L 21.0-51.0 % Monocytes (%) (Auto) 11.6 3.0-13.0 % Eosinophils (%) (Auto) 0.1 0.0-8.0 % Basophils (%) (Auto) 0.2 0.0-5.0 % Neutrophils # (Auto) 11.1 H 1.8-7.7 K/uL Lymphocytes # (Auto) 1.9 1.0-4.8 K/uL Monocytes # (Auto) 1.7 H 0.1-1.0 K/uL Eosinophils # (Auto) 0.02 0.00-0.70 K/uL Basophils # (Auto) 0.03 0.00-0.20 K/uL Absolute Immature Granulocyte (auto 0.13 0-1 K/uL Nucleated Red Blood Cells 0.0 0.0-0.19 % White Cell Morphology Comment See comments Chemistry Labs: Test 11/12/24 04:06 Range/Units Sodium Level 142 136-145 mmol/L Potassium Level 3.8 3.5-5.1 mmol/L Chloride Level 107 101-111 mmol/L Carbon Dioxide Level 30 21-32 mmol/L Blood Urea Nitrogen 14 7-18 mg/dL Creatinine 0.6 0.5-1.3 mg/dL Glomerular Filtration Rate Calc 106 >90 mL/min Random Glucose 129 H 70-105 mg/dL Total Calcium 8.5 8.5-10.1 mg/dL Coagulation Labs: Test 11/12/24 04:06 Range/Units Activated Partial Thromboplast Time 63.3 H 26.3-35.5 SEC Diagnostics / Radiology: [Copy/Paste Echos/Imaging Report here] Impression and Plan: Coronary artery disease Ventricular fibrillation cardiac arrest secondary to 100% thrombotic occlusion to the apical LAD status post cardioversion with 360 joules to sinus rhythm Inferior ST-elevation [place] secondary to apical LAD thrombosis status post balloon angioplasty and aspiration thrombectomy History of ventricular fibrillation cardiac arrest secondary to 100% thrombotic occlusion of the right coronary artery status post stenting to the mid RCA July 2024 Hypertension # CAD apical LAD thrombosis s/p balloon angioplasty and aspiration thrombectomy Patient presented on one 02/09/2025 for left heart catheterization, coronary angiography with possible percutaneous intervention of the left anterior descending. Patient underwent stenting of the ostial to proximal LAD in overlapping fashion with a 2nd stent in the mid LAD using intravascular ultrasound guidance and shockwave lithotripsy. Postprocedure, he developed acute onset of chest pain with radiation to the left upper extremity with EKG showing inferior ST elevations. Patient was immediately brought back to the laborer laboratory for repeat coronary ang iography which revealed apical left anterior descending artery 100% thrombosis, now status post balloon angioplasty and aspiration thrombectomy, and single cardioversion from ventricular fibrillation with 360 joules to sinus rhythm 2D echocardiogram showed EF 50-55% no wall motion or valvular abnormalities. Patient be continued on the dual antiplatelet therapy with aspirin 81 mg daily and prasugrel 10 mg daily for minimum 12 months. With high-intensity statin atorvastatin 40 mg daily We will discontinue heparin drip at this time after 2-3 hours we will remove femoral artery sheath We will repeat ECG this AM and if nonischemic will plan to DC home this evening if no access site issues. . Thank you for this consult cardiology will continue to follow along ATTESTATION BY PHYSICIAN I have seen and examined the patient, reviewed the above documentation, participated in medical decision making, made necessary modifications, and agree with the treatment plan as documented by my mid-level provider above. MD NINO Subramanian JAMES R MD Nov 12, 2024 09:49
--- NOTE | 2024-11-12 11:29 | NUR ---
PATIENT TRANSFERRED TO ROOM 226 PER MD ORDER. REPORT GIVEN TO Benjie ACE RN. ALL QUESTIONS ANSWERED. ALL PATIENT BELONGINGS TAKEN ON STRETCHER. PATIENT TAKEN VIA ICU BED AND TRANSFERRED TO PCCU. LEFT IN CARE OF NURSE AT BEDSIDE.
--- NOTE | 2024-11-12 11:48 | EKG ---
[facility] Test Date: 2024-11-12 Test Time: 11:48:15 Pat Name: KELSIE HOUSTON Department: [facility] Room: 226 1 Gender: M [employer] Developer: ALEJANDRINA : [id number] Requested By: MARTHA ONEILL Order Number: [id number] Reading MD: Deny Tidwell Measurements Intervals [place] Rate: 77 P: 27 NM: 184 QRS: 33 QRSD: 104 T: 22 QT: 384 QTc: 434 Interpretive Statements Normal sinus rhythm Nonspecific ST and T wave abnormality Compared to ECG 11/11/2024 10:14:46 Myocardial infarct finding no longer present ST (T wave) deviation still present Electronically Signed On 11-13-2024 20:01:29 POLYMER CHEMIST by Deny Tidwell Please click the below link to view image of tracing.
--- NOTE | 2024-11-12 14:46 | NUR ---
DC PLAN VISITED WITH PATIENT. PATIENT LIVES WITH SPOUSE. INDEPENDENT ABLE TO PERFORM ADL'S. PATIENT HAS NO SERVICES OR DME'S. FEELS SAFE TO RETURN HOME. Addendum: 11/12/24 at 1449 by BILLIE FULLER RN CM Amended: Links added.
[2024-11-12 15:06] LABS: INR 1.12 (0.85-1.15); PROTHROMBIN TIME 12.4 SEC (9.6-11.6)
[2024-11-12 15:07] LABS: PARTIAL THROMBOPLASTIN TIME 22.2 SEC (26.3-35.5)
[2024-11-12] MEDS: acetaMINOPHEN WITH coDEINE 1 TAB TAB PO PRN (16:17)
[2024-11-13 03:26] VITALS: BP 131/72; PULSE 91; RESP 20; TEMP 99.3
[2024-11-13 07:00] VITALS: BP 121/73; PULSE 94; RESP 20; TEMP 99
[2024-11-13 08:30] VITALS: O2SAT 95
[2024-11-13 11:00] VITALS: BP 121/64; PULSE 76; RESP 20; TEMP 99.2
--- NOTE | 2024-11-13 15:14 | PN ---
[facility] PROGRESS NOTE Date Patient Seen: Nov 13, 2024 Time of Visit: 1135 Supervising Physician: Dr. HILTON Primary Care Physician: Outpatient Specialists: Inpatient Consults: SINGH Critical Care team PROBLEM LIST: Coronary artery disease Ventricular fibrillation cardiac arrest secondary to 100% thrombotic occlusion to the apical LAD status post cardioversion with 360 joules to sinus rhythm Inferior ST-elevation [place] secondary to apical LAD thrombosis status post balloon angioplasty and aspiration thrombectomy History of ventricular fibrillation cardiac arrest secondary to 100% thrombotic occlusion of the right coronary artery status post stenting to the mid RCA July 2024 Hypertension INTERVAL HISTORY: 11/13 patient was seen and examined at bedside with family present. Patient is awake alert able to answer simple questions appropriately. Patient denies any reoccurrence chest pain or shortness of breadth. Denies any nausea vomiting or abdominal pain. He is tolerating p.o. diet. He is having bowel movements. Patient remains hemodynamically stable. From a pulmonary standpoint patient is cleared for discharge. As per primary nurse patient will be getting discharged today per primary team REVIEW OF SYSTEMS: 12 point ROS reviewed with patient. Pertinent positives mentioned above. Otherwise negative. PHYSICAL EXAM: GENERAL: alert, awake oriented x 3 HEENT: EOMI, Sclera non icteric, moist mucosa NECK: Supple, no JVD, trachea midline LUNGS: Clear breath sounds bilaterally. No wheezes HEART: Regular rate and rhythm. Normal S1 and S2, without murmurs ABD: Abdomen soft, nontender. Bowel sounds present EXT: No clubbing cyanosis or edema. Capillary and peripheral vascular WNL. NEURO: Alert and oriented to person, follows commands Vital Signs (last 8hr) Date Time Temp Pulse Resp B/P (MAP) Pulse Ox O2 Delivery O2 Flow Rate FiO2 11/13/24 11:00 99.1 76 20 121/64 94 Room Air LABS: Hematology Labs: Test 11/12/24 04:06 Range/Units White Blood Count 15.0 H 4.8-10.8 K/uL Red Blood Count 3.32 L 4.50-6.20 MIL/uL Hemoglobin 8.1 L 14.0-18.0 g/dL Hematocrit 27.3 L 42-54 % Mean Corpuscular Volume 82.2 79-99 fL Mean Corpuscular Hemoglobin 24.4 L 27.0-33.0 pg Mean Corpuscular Hemoglobin Concent 29.7 L 32.0-36.0 g/dL Red Cell Distribution Width 16.1 H 11.0-15.5 % Platelet Count 296 130-400 K/uL Mean Platelet Volume 10.6 H 7.5-10.5 fL Immature Granulocyte % (Auto) 0.9 0-1 % Neutrophils (%) (Auto) 74.4 40.0-77.0 % Lymphocytes (%) (Auto) 12.8 L 21.0-51.0 % Monocytes (%) (Auto) 11.6 3.0-13.0 % Eosinophils (%) (Auto) 0.1 0.0-8.0 % Basophils (%) (Auto) 0.2 0.0-5.0 % Neutrophils # (Auto) 11.1 H 1.8-7.7 K/uL Lymphocytes # (Auto) 1.9 1.0-4.8 K/uL Monocytes # (Auto) 1.7 H 0.1-1.0 K/uL Eosinophils # (Auto) 0.02 0.00-0.70 K/uL Basophils # (Auto) 0.03 0.00-0.20 K/uL Absolute Immature Granulocyte (auto 0.13 0-1 K/uL Nucleated Red Blood Cells 0.0 0.0-0.19 % Chemistry Labs: Test 11/12/24 04:06 Range/Units Sodium Level 142 136-145 mmol/L Potassium Level 3.8 3.5-5.1 mmol/L Chloride Level 107 101-111 mmol/L Carbon Dioxide Level 30 21-32 mmol/L Blood Urea Nitrogen 14 7-18 mg/dL Creatinine 0.6 0.5-1.3 mg/dL Glomerular Filtration Rate Calc 106 >90 mL/min Random Glucose 129 H 70-105 mg/dL Total Calcium 8.5 8.5-10.1 mg/dL Coagulation Labs: Test 11/12/24 14:31 Range/Units Prothrombin Time 12.4 H 9.6-11.6 SEC Prothromb Time International Ratio 1.12 0.85-1.15 Activated Partial Thromboplast Time 22.2 #L 26.3-35.5 SEC DIAGNOSTICS / RADIOLOGY RESULTS: na PLAN NEURO: Minimize central acting medications as possible. Maintain fall precautions, adequate lighting during the day PULMONARY: Supplemental 02 as needed. Maintain aspiration precautions at all times CARDIOVASCULAR: Follow hemodynamics. Vital signs per facility protocol GI & NUTRITION: Continue with nutritional support. Continue stool softeners and laxatives as needed. KIDNEYS & ELECTROLYTES: Strict monitoring of intake, output and overall fluid balance. Avoid nephrotoxic medications to the extent possible. Medications to be dosed according to renal function. Monitor electrolytes and replace as needed ENDOCRINE: Maintain blood glucose between 100-180 at all times. Hypoglycemia protocol in place INFECTIOUS DISEASE: Trend temperature, WBC and procalcitonin level Follow cultures, deescalate antibiotics as soon as possible. Panculture if new onset fever ONCOLOGY/HEMATOLOGY/COAGULATION: Monitor for s/s of bleeding Monitor hemoglobin, coagulation studies as needed SKIN: Pressure ulcer prevention per facility protocol Specialty mattress ORTHO/REHAB: Continue PT/OT Prophylaxis: Continue GI and DVT prophylaxis Code Status: Full Resuscitation Disposition: TBD Other: Case discussed with supervising physician plan of care agreed upon JL GIBBS Nov 13, 2024 15:14
--- NOTE | 2024-11-13 17:40 | PN ---
[facility] CARDIOLOGY PROGRESS NOTE Date Patient Seen: Nov 13, 2024 Time of Visit: 17:39 Problem List: Coronary artery disease Ventricular fibrillation cardiac arrest secondary to 100% thrombotic occlusion to the apical LAD status post cardioversion with 360 joules to sinus rhythm Inferior ST-elevation CO secondary to apical LAD thrombosis status post balloon angioplasty and aspiration thrombectomy History of ventricular fibrillation cardiac arrest secondary to 100% thrombotic occlusion of the right coronary artery status post stenting to the mid RCA July 2024 Hypertension Interval History: [Acute events overnight. The patient denies any cardiac symptoms or anginal equivalents. Physical Examination: GENERAL: [No acute distress.] HEAD: [Normal with no signs of head trauma.] EYES: [PERRLA, EOMI, conjunctiva and sclera normal.] ENT: [Hearing grossly intact, normal oropharynx.] NECK: [Supple without JVD. There is no tenderness, lymphadenopathy, or masses. No thyromegaly. Normal carotid upstrokes without bruits.] LUNGS: [Clear breath sounds bilaterally. There are right basilar rales one third of the way up the chest. No wheezes, or rhonchi.] HEART: [Normal rate and rhythm. Normal S1 and S2 without mumurs, gallop or rub.] VASC: [Peripheral pulses +2 bilaterally.] ABD: [Bowel sounds normal, soft, nontender, no masses, no organomegaly. No audible bruits.] : [Not examined] LYMPH: [No lymphadenopathy noted.] EXT: [No clubbing, cyanosis or edema.] SKIN: [No rashes or lesions noted.] NEURO: [Awake, alert, and oriented x3. No focal sensory or strength deficits noted.] Laboratory: [ ] Hematology Labs: Test 11/12/24 04:06 Range/Units White Blood Count 15.0 H 4.8-10.8 K/uL Red Blood Count 3.32 L 4.50-6.20 MIL/uL Hemoglobin 8.1 L 14.0-18.0 g/dL Hematocrit 27.3 L 42-54 % Mean Corpuscular Volume 82.2 79-99 fL Mean Corpuscular Hemoglobin 24.4 L 27.0-33.0 pg Mean Corpuscular Hemoglobin Concent 29.7 L 32.0-36.0 g/dL Red Cell Distribution Width 16.1 H 11.0-15.5 % Platelet Count 296 130-400 K/uL Mean Platelet Volume 10.6 H 7.5-10.5 fL Immature Granulocyte % (Auto) 0.9 0-1 % Neutrophils (%) (Auto) 74.4 40.0-77.0 % Lymphocytes (%) (Auto) 12.8 L 21.0-51.0 % Monocytes (%) (Auto) 11.6 3.0-13.0 % Eosinophils (%) (Auto) 0.1 0.0-8.0 % Basophils (%) (Auto) 0.2 0.0-5.0 % Neutrophils # (Auto) 11.1 H 1.8-7.7 K/uL Lymphocytes # (Auto) 1.9 1.0-4.8 K/uL Monocytes # (Auto) 1.7 H 0.1-1.0 K/uL Eosinophils # (Auto) 0.02 0.00-0.70 K/uL Basophils # (Auto) 0.03 0.00-0.20 K/uL Absolute Immature Granulocyte (auto 0.13 0-1 K/uL Nucleated Red Blood Cells 0.0 0.0-0.19 % Chemistry Labs: Test 11/12/24 04:06 Range/Units Sodium Level 142 136-145 mmol/L Potassium Level 3.8 3.5-5.1 mmol/L Chloride Level 107 101-111 mmol/L Carbon Dioxide Level 30 21-32 mmol/L Blood Urea Nitrogen 14 7-18 mg/dL Creatinine 0.6 0.5-1.3 mg/dL Glomerular Filtration Rate Calc 106 >90 mL/min Random Glucose 129 H 70-105 mg/dL Total Calcium 8.5 8.5-10.1 mg/dL Coagulation Labs: Test 11/12/24 14:31 Range/Units Prothrombin Time 12.4 H 9.6-11.6 SEC Prothromb Time International Ratio 1.12 0.85-1.15 Activated Partial Thromboplast Time 22.2 #L 26.3-35.5 SEC Diagnostics / Radiology: [Copy/Paste Echos/Imaging Report here] Impression and Plan: Coronary artery disease Ventricular fibrillation cardiac arrest secondary to 100% thrombotic occlusion to the apical LAD status post cardioversion with 360 joules to sinus rhythm Inferior ST-elevation CO secondary to apical LAD thrombosis status post balloon angioplasty and aspiration thrombectomy History of ventricular fibrillation cardiac arrest secondary to 100% thrombotic occlusion of the right coronary artery status post stenting to the mid RCA July 2024 Hypertension # CAD apical LAD thrombosis s/p balloon angioplasty and aspiration thrombectomy Patient presented on one 02/09/2025 for left heart catheterization, coronary angiography with possible percutaneous intervention of the left anterior descending. Patient underwent stenting of the ostial to proximal LAD in overlapping fashion with a 2nd stent in the mid LAD using intravascular ultrasound guidance and shockwave lithotripsy. Postprocedure, he developed acute onset of chest pain with radiation to the left upper extremity with EKG showing inferior ST elevations. Patient was immediately brought back to the medical lab technician for repeat coronary angiography which revealed apical left anterior descending artery 100% thrombosis, now status post balloon angioplasty and aspiration thrombectomy, and single cardioversion from ventricular fibrillation with 360 joules to sinus [facility] 2D echocardiogram showed EF 50-55% no wall motion or valvular abnormalities. Patient be continued on the dual antiplatelet therapy with aspirin 81 mg daily and prasugrel 10 mg daily for minimum 12 months. With high-intensity statin atorvastatin 40 mg daily We will discontinue heparin drip at this time after 2-3 hours we will remove femoral artery sheath Repeat ECG showed sinus rhythm nonspecific ST-T wave abnormalities The patient denies any further chest pain, palpitations, dyspnea or any other anginal equivalents.. . Thank you for this consult cardiology will sign off at this time the patient nery l follow up at clinic was two weeks after discharge ATTESTATION BY PHYSICIAN I have seen and examined the patient, reviewed the above documentation, participated in medical decision making, made necessary modifications, and agree with the treatment plan as documented by my mid-level provider above. MD NINO Subramanian JAMES R MD Nov 13, 2024 17:40
== END 2024-11-13 12:40 | disposition home or self-care (01) | DRG 323 ==
LOC: DAH 05:46 → DAHIP 05:47 → DAH 05:47 → 2CV 13:13 → 2DH 11-12 11:27
PROVIDERS: ADMIT Internal Medicine; ATTEND Internal Medicine
PROC: 027035Z Dilation of Coronary Artery, One Artery with Two Drug-eluting Intraluminal Devices, Percutaneous Approach (ICD-10-PCS; principal; 2024-11-11)
PROC: 02F03ZZ Fragmentation in Coronary Artery, One Artery, Percutaneous Approach (ICD-10-PCS; 2024-11-11)
PROC: 02C03ZZ Extirpation of Matter from Coronary Artery, One Artery, Percutaneous Approach (ICD-10-PCS; 2024-11-11)
PROC: 4A023N7 Measurement of Cardiac Sampling and Pressure, Left Heart, Percutaneous Approach (ICD-10-PCS; 2024-11-11)
PROC: B2111ZZ Fluoroscopy of Multiple Coronary Arteries using Low Osmolar Contrast (ICD-10-PCS; 2024-11-11)
PROC: B54BZZA Ultrasonography of Right Lower Extremity Veins, Guidance (ICD-10-PCS; 2024-11-11)
PROC: 3E07317 Introduction of Other Thrombolytic into Coronary Artery, Percutaneous Approach (ICD-10-PCS; 2024-11-11)
DX: I25.119 Atherosclerotic heart disease of native coronary artery with unspecified angina pectoris (principal); I46.2 Cardiac arrest due to underlying cardiac condition; I49.01 Ventricular fibrillation; I10 Essential (primary) hypertension; Z95.5 Presence of coronary angioplasty implant and graft; Z86.79 Personal history of other diseases of the circulatory system; I25.2 Old myocardial infarction
CPT/HCPCS: 36415; 71045; 80048; 83880; 85025; 85610; 85730; 92972; 92973; 92975; 92978; 92979; 93005; 93306; 93458; 99156; 99157; A4606; C1761; C1769; C1887; C1894; C9600; G0378; J0360; J1327; J1644; J2250; J2405; J3010; J3490; J7030; Q9967; A4215; A4216; A4221; A4222; A4223; A4649; A4663; C1725; C1753; C1757; C1874; Q9965

== ENCOUNTER → 2024-11-25 | Outpatient (CLI) | payer OTHER ==
[2024-11-25 12:50] LABS: BASOPHILS # (AUTO) 0.07 K/uL (0.00-0.20); BASOPHILS % (AUTO) 0.5 % (0.0-5.0); EOSINOPHILS # (AUTO) 0.09 K/uL (0.00-0.70); EOSINOPHILS % (AUTO) 0.6 % (0.0-8.0); HEMATOCRIT 30.2 % (42-54); IMMATURE GRANULOCYTE ABSOLUTE 0.08 K/uL (0-1); LYMPHOCYTES # (AUTO) 2.3 K/uL (1.0-4.8); LYMPHOCYTES % (AUTO) 15.5 % (21.0-51.0); MEAN CORPUSCULAR HEMOGLOBIN 23.1 pg (27.0-33.0); MEAN CORPUSCULAR HGB CONC 29.5 g/dL (32.0-36.0); MEAN CORPUSCULAR VOLUME 78.4 fL (79-99); MONOCYTES # (AUTO) 1.8 K/uL (0.1-1.0); MONOCYTES % (AUTO) 11.9 % (3.0-13.0); NEUTROPHILS # (AUTO) 10.6 K/uL (1.8-7.7); PLATELET COUNT (AUTO) 502 K/uL (130-400); RED BLOOD CELL COUNT(AUTO) 3.85 MIL/uL (4.50-6.20); RED CELL DISTRIBUTION WIDTH 16.5 % (11.0-15.5)
[2024-11-25 13:30] LABS: POTASSIUM 4.6 mmol/L (3.5-5.1)
[2024-11-25 13:33] LABS: B-TYPE NATRIURETIC PEPTIDE 177 pg/mL (0-100)
== END | disposition home or self-care (01) ==
LOC: LAB 09:51
PROVIDERS: ATTEND Internal Medicine
DX: I25.10 Atherosclerotic heart disease of native coronary artery without angina pectoris (principal)
CPT/HCPCS: 36415; 80048; 83880; 85025